=== PATIENT | female | born 1965 | race Caucasian/White ===

== ENCOUNTER 2017-03-09 09:02 | Emergency (ER) | payer BC, OTHER ==
[~2017-03-09] VITALS: Ht 170.2 cm; Wt 82.2 kg
[~2017-03-09 09:02] MED LIST: METO25TA3 PO
[2017-03-09 09:05] VITALS: BP 154/98; PULSE 83; RESP 16; TEMP 98.3; O2SAT 97
[2017-03-09] MEDS ORDERED: HYDR-3516 PO (09:20)
[2017-03-09] MEDS ORDERED: CYCL1TAB29 PO (09:20)
--- NOTE | 2017-03-09 09:20 | PD ---
HPI Chief Complaint: Back/ Neck Pain or Injury Time Seen by Provider: 09:17 Travel History International Travel<30 days: No Contact w/Intl Traveler<30days: No Traveled to known affect area: No History of Present Illness HPI Patient presents with upper back discomfort for approximately one week. Denies any trauma misstep or falls. Denies any heavy lifting. Denies any upper extremity weakness. 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 PFSH Past Medical History Hx Anticoagulant Therapy: No Cardiovascular Problems: Yes (tachycardia) Diabetes: No Diminished Hearing: No Tetanus Vaccination: > 5 Years Influenza Vaccination: No ?: Not LMP: 2016 Menopausal: Yes Past Surgical History Surgical History: No Previous Surgery Social History Alcohol Use: No Tobacco Use: No Substance Use: No Allergies-Medications (Allergen,Severity, Reaction): Coded Allergies: Penicillin (Verified Allergy, Severe, rash, 03/09/17) Reported Meds & Prescriptions Reported Meds & Active Scripts Active Reported Metoprolol Tartrate 25 Mg Tab 25 Mg PO BID Review of Systems General / Constitutional: No: Fever Eyes: No: Visual changes HENT: No: Headaches Cardiovascular: No: Chest Pain or Discomfort Respiratory: No: Shortness of Breath Gastrointestinal: No: Abdominal Pain Genitourinary: No: Dysuria Musculoskeletal: No: Pain Skin: No Rash Neurologic: No: Weakness Psychiatric: No: Depression Endocrine: No: Polydipsia Hematologic/Lymphatic: No: Easy Bruising Physical Exam Narrative GENERAL: Well-nourished, well-developed patient. SKIN: Focused skin assessment warm/dry. HEAD: Normocephalic. EYES: No scleral icterus. No injection or drainage. NECK: Supple, trachea midline. No JVD or lymphadenopathy. CARDIOVASCULAR: Regular rate and rhythm without murmurs, gallops, or rubs. RESPIRATORY: Breath sounds equal bilaterally. No accessory muscle use. GASTROINTESTINAL: Abdomen soft, non-tender, nondistended. MUSCULOSKELETAL: No cyanosis, or edema. BACK: Nontender without obvious deformity. No CVA tenderness. Examination of the thoracic spine reveals no midline tenderness left-sided paraspinous pain good upper shoulder strength Data Data Last Documented VS Vital Signs Date Time Temp Pulse Resp B/P Pulse Ox O2 Delivery O2 Flow Rate FiO2 03/09/17 09:05 98.3 83 16 154/98 97 MDM Medical Decision Making Medical Screen Exam Complete: Yes Emergency Medical Condition: Yes Differential Diagnosis Vertebral fracture, musculoskeletal strain, thoracic degenerative disc disease, disc compression Narrative Course Assessment and plan discussed with patient and daughter at bedside Diagnosis Primary Impression: Musculoskeletal back pain Patient Instructions: General Instructions Additional Instructions: Encourage nonsteroidal anti-inflammatories warm heat gentle stretching and strengthening and massage. Follow-up with PCP Med/Other Pt SpecificInfo: Prescription(s) given Scripts Hydrocodone-Acetaminophen 5-325 mg Tab1 Tab PO Q6H PRN (PAIN) #20 TAB Ref 0 Prov:Ismael Pino MD 03/09/17 Cyclobenzaprine (Flexeril)10 Mg Tab10 Mg PO TID #20 TAB Ref 0 Prov:Ismael Pino MD 03/09/17 Disposition: 01 DISCHARGE HOME Condition: Good Ismael Pino MD Mar 09, 2017 09:20
== END 2017-03-09 09:28 | disposition home or self-care (01) ==
LOC: PHEFT 09:02
DX: M54.9 Dorsalgia, unspecified (principal); R00.0 Tachycardia, unspecified
CPT/HCPCS: 99283